=== PATIENT | male | born 1945 | race Caucasian/White ===

== ENCOUNTER → 2017-08-23 | Outpatient (CLI) | payer OTHER | LOC: COL.RAD 12:20 | DX: I63.8 Other cerebral infarction (principal); I51.7 Cardiomegaly ==

== ENCOUNTER → 2019-03-14 | Outpatient (CLI) | payer OTHER | LOC: COL.RAD 03-13 11:30 | DX: G20 Parkinson's disease (principal); G31.9 Degenerative disease of nervous system, unspecified; I67.82 Cerebral ischemia ==